=== PATIENT | male | born 1945 | race Caucasian/White ===

== ENCOUNTER 2022-11-01 10:55 | Emergency (ER) | payer MEDICARE ==
[~2022-11-01] VITALS: Ht 175.3 cm; Wt 73.6 kg
[2022-11-01 11:00] VITALS: BP 138/94
== END 2022-11-01 12:29 | disposition home or self-care (01) ==
LOC: ER 10:56
DX: R04.0 Epistaxis (principal)
CPT/HCPCS: 99283